=== PATIENT | female | born 1945 | race Hispanic/Latino ===

== ENCOUNTER 2024-10-24 23:32 | Inpatient (IN) | payer OTHER, SELFPAY ==
[2024-10-24 21:00] VITALS: BP 160/79
[2024-10-24 21:05] LABS: Glucose - Point of Care 408 mg/dl (70-99)
[2024-10-24 21:21] VITALS: BP 149/67; BMI 24.7
[2024-10-24 21:22] LABS: % Basophils 0.6 % (0-2); % Eosinophils 0.6 % (0-6); % Immature Granulocytes 0.8 % (0-0.5); % Lymphocytes 15.9 % (20.5-51.1); % Monocytes 8.3 % (1.7-9.3); % Neutrophils 73.8 % (42.2-75.2); Absolute Basophils 0.1 10^3/uL (0-0.2); Absolute Eosinophils 0.1 10^3/uL (0-0.7); Absolute Immature Granulocytes 0.1 10^3/uL (0-0.05); Absolute Lymphocytes 1.7 10^3/uL (1.2-3.4); Absolute Monocytes 0.9 10^3/uL (0.1-0.6); Hematocrit 43.5 % (37.0-47.0); Hemoglobin 14.9 g/dL (12.0-16.0); Mean Corp Hgb Conc. 34.3 g/dL (33.0-37.0); Mean Corpuscular Hgb 29.3 pg (27.0-31.0); Mean Corpuscular Volume 85.6 fL (81.0-99.0); Mean Platelet Volume 10.1 fL (7.4-10.4); Nucleated Red Blood Cells % 0 %; Platelet Count 343 10^3/uL (130-400); Red Blood Cell Count 5.08 10^6/uL (4.20-5.40); Red Cell Dist. Width 12.1 % (11.5-14.5); White Blood Cell Count 10.8 10^3/uL (4.8-10.8)
[2024-10-24 21:23] LABS: Venous Blood Gas B.E. -5.8 mmol/L (-4 to +4); Venous Blood Gas HCO3 20.7 mmol/L (22-27); Venous Blood Gas O2 Sat % 77.8 %; Venous Blood Gas pCO2 43 mmHg (35-48); Venous Blood Gas pH 7.29 (7.32-7.43); Venous Blood Gas pO2 44 mmHg (30-50)
[2024-10-24] MEDS: NSS 500 IV (21:55)
[2024-10-24 21:57] LABS: ALT (SGPT) 15 U/L (0-35); AST (SGOT) 16 U/L (14-36); Alkaline Phosphatase 97 U/L (38-126); Blood Urea Nitrogen 34 mg/dl (7-17); Calcium 9.5 mg/dl (8.4-10.2); Carbon Dioxide 17 mmol/L (22-30); Chloride 96 mmol/L (98-107); Estimated Creatinine Clearance 62 ml/min; Glucose 491 mg/dl (70-99); Potassium 5.5 mmol/L (3.5-5.1); Sodium 130 mmol/L (135-145); Total Bilirubin 0.9 mg/dl (0.2-1.3); eGFR > 60.00
[2024-10-24 22:00] VITALS: BP 141/84
[2024-10-24 22:02] LABS: B-Hydroxybutyrate 5.63 mmol/L (0.02-0.27)
--- NOTE | 2024-10-24 22:52 | ED.GENMED ---
History of Present Illness
General
Chief Complaint: Blood Sugar Problem
Source: patient and family
Time Seen by Provider: 10/24/24 21:14
History of Present Illness
History of Present Illness:
Note:
CHIEF COMPLAINT(S)
High blood sugar levels.
HISTORY OF PRESENT ILLNESS
The patient is a 79-year-old female with a past medical history of diabetes and hypertension, presenting with elevated blood sugar levels. Per the patients daughter, the patient recently arrived in the [facility] two months ago and has been
staying with her family. The high blood sugar levels were noticed a few days ago, with the highest readings in the low 500s mg/dL, and more recently reading at 380 mg/dL. The patient has been on metformin 1000 mg but was previously on a different
medication regimen while in [facility], which included a dosage of 850 mg. No primary care provider has been established yet in the [place]
The patient has not experienced chest pain, abdominal pain, nausea, or fever, but has reported occasional headaches. The patient denies any pain on urination. Of note, the patient had a minor stroke in the past, but has no history of heart attack or
major surgeries. Her daily activities and overall well-being have been affected by elevated blood sugar levels. The patients daughter increased the dosage of metformin on her own.
PHYSICAL EXAM
- The patient is awake, alert, and oriented.
- Skin is warm and dry.
- Cardiovascular: Heartbeat is regular with no murmur noted.
- Respiratory: Lungs are clear to auscultation.
- Abdomen: Soft and non-tender with no tenderness upon palpation.
- Peripheral: No leg swelling noted.
- Cranial Nerves: Grossly intact.
- Extremities: Skin is warm and well-perfused.
Nursing notes reviewed and vital signs reviewed.
CHRONIC MEDICAL CONDITIONS SIGNIFICANTLY AFFECTING CARE
- Diabetes
- Hypertension
- History of minor stroke
SOCIAL DETERMINANTS AFFECTING HEALTH
Recently relocated to the [place] and does not have an established primary care provider yet.
REVIEW OF SYSTEMS
- General: Elevated blood sugar levels
- Neurological: Occasional headaches
- Gastrointestinal: No abdominal pain or nausea
- Urinary: No pain on urination
PLAN
1. Administer gentle fluids to help lower blood sugar levels.
2. Check urine for signs of infection to rule out underlying causes for hyperglycemia.
3. Follow-up on blood work results to guide further management.
4. Consider referral to a primary care provider for ongoing diabetes management and stabilization.
DIFFERENTIAL DIAGNOSIS
The Differential Diagnosis includes, in no particular order and is not limited to:
1. Uncontrolled diabetes mellitus
2. Urinary tract infection
3. Medication adjustment
4. Stress-induced hyperglycemia
5. Dehydration-induced hyperglycemia
6. Infection-induced hyperglycemia
7. Endocrine disorders
8. Metabolic conditions
9. Unrecognized diet changes
10. Medication side effects
CARE-UPDATE
10/24/24 - 22:53
Reviewed lab results indicate metabolic acidosis with an anion gap (AG) of 17, accompanied by hyperglycemia and elevated beta-hydroxybutyrate levels. Initiating an insulin drip is planned to address these issues. Patient appears stable at present.
Phy Exam
Physical Exam
Physical Exam:
.
Course
Orders/Labs/Results
Orders:
Orders
10/24/24 21:10
B-Hydroxybutyrate Urgent
Complete Blood Count/With Diff Urgent
Comprehensive Metabolic Panel Urgent
Venous Blood Gas Urgent
%Oxygen/Room Air: 98
10/24/24 21:45
0.9% Sodium Chloride 500 ml [Nss] 500 ml IV BOLUS
10/24/24 22:52
Bedside Glucose- Treatment Q1H
IV Insert/Care/Rem.- Treatment PRN
10/24/24 22:57
Electrocardiogram (*1) Urgent
Reason for Study: Fatigue / Weakness
EKG- Treatment ONCE
10/24/24 22:59
Basic Metabolic Panel Q2H
Urinalysis Reflex To Culture Urgent
Date Specimen was Collected: 10/24/24
Time Specimen was Collected: 22:56
10/24/24 23:06
Reg Insulin 100 Units/100 ml [Novolin R Insulin Infusion] 100 units in 100 ml IV NOW
10/24/24 23:14
Admit/Transfer Patient As Directed
Co-Sign Provider:
Level of Care: Inpatient admission
Assign to:: ICU
Physician / Group: [email or web address]
Diagnosis: DKA, Hi AG Metabolic acidosis
Reason for Hospitalization: DKA, Hi AG Metabolic acidosis
Expected length of stay greater than two midnights?: Yes
ELOS- Estimated Length of Stay in days: 3
I certify the patient meets the requirements for IP care: Yes
10/24/24 23:15
Code Status As Directed
Resuscitation Status: Full Code
10/25/24 00:15
0.9% Sodium Chloride 1000 ml [Nss] 1,000 ml IV 250 mls/hr
Reg Insulin 100 Units/100 ml [Novolin R Insulin Infusion] 100 units in 100 ml IV PER PROTOCOL
Currently infusing. Continue current dose and titrate:: Yes
10/25/24 00:15
Diabetes Education Consult Routine
Reason for Consult: Insulin Instruction
Newly Diagnosed?: No
Diabetes Management by Nurse Practitioner Routine
Consulting Provider: Rosalina Tomlinson
Was provider already notified?: No
Reason for Consult: Insulin Management
Activity As Directed
Activity Level: With Assistance
Bedside Glucose Monitoring As Directed
Frequency: Q1H
Intake/ Output As Directed
Frequency: Per unit guidelines
Notify MD As Directed
Notify physician if: Nurse to contact provider when glucose reaches 250 to obtain orders for D5 0.45 NaCl
Vital Signs As Directed
Frequency: Per unit guidelines
Weight As Directed
Frequency: Daily
DX Deep Vein Thrombosis Video Routine
10/25/24 01:00
Basic Metabolic Panel Q2H
10/25/24 02:00
Potassium Q2
Comment: report result to provider till Potassium >/= 3.3 to 5.3 mEq/L
10/25/24 03:00
Basic Metabolic Panel Q2H
10/25/24 04:00
Basic Metabolic Panel Q4
10/25/24 Breakfast
1800 calorie (15 carb) Diabetic
At Your Request: Full Participation
Does patient need a safe tray?: No
Complete Blood Count/No Diff IN AM
Hgba1c [Glycohemoglobin (HgbA1c)] IN AM
Potassium Q2
Comment: report result to provider till Potassium >/= 3.3 to 5.3 mEq/L
10/25/24 08:00
Basic Metabolic Panel Q4
Lisinopril [Zestril] 20 mg PO DAILY
10/25/24 10:00
Potassium Q2
Comment: report result to provider till Potassium >/= 3.3 to 5.3 mEq/L
10/25/24 12:00
Basic Metabolic Panel Q4
10/25/24 14:00
Potassium Q2
Comment: report result to provider till Potassium >/= 3.3 to 5.3 mEq/L
10/25/24 16:00
Basic Metabolic Panel Q4
10/25/24 18:00
Enoxaparin Sodium [Lovenox] 40 mg SC QPM
10/25/24 20:00
Basic Metabolic Panel Q4
10/26/24 00:00
Basic Metabolic Panel Q4
Abnormal Lab Results
10/24/24 10/24/24 10/24/24
21:03 21:10 22:59
Abs Immat Gran (auto) 0.1 H 10^3/uL
(0-0.05)
Absolute Neuts (auto) 8.0 H 10^3/uL
(1.4-6.5)
Absolute Monos (auto) 0.9 H 10^3/uL
(0.1-0.6)
Immature Gran % 0.8 H %
(0-0.5)
Lymphocytes % 15.9 L %
(20.5-51.1)
VBG pH 7.29 L
(7.32-7.43)
VBG HCO3 20.7 L mmol/L
(22-27)
Sodium 130 L mmol/L 130 L mmol/L
(135-145) (135-145)
Potassium 5.5 H mmol/L
(3.5-5.1)
Chloride 96 L mmol/L
(98-107)
Carbon Dioxide 17 L mmol/L 17 L mmol/L
(22-30) (22-30)
BUN 34 H mg/dl 33 H mg/dl
(7-17) (7-17)
Creatinine 0.5 L mg/dL
(0.6-1.0)
Glucose 491 H* mg/dl 441 H mg/dl
(-99) (70-99)
Urine Ketones 3+ A
(Negative)
Urine Glucose 4+ A
(Negative)
B-Hydroxybutyrate 5.63 H mmol/L
(0.02-0.27)
POC Glucose 408 H mg/dl
(70-99)
10/24/24
23:12
Abs Immat Gran (auto)
Absolute Neuts (auto)
Absolute Monos (auto)
Immature Gran %
Lymphocytes %
VBG pH
VBG HCO3
Sodium
Potassium
Chloride
Carbon Dioxide
BUN
Creatinine
Glucose
Urine Ketones
Urine Glucose
B-Hydroxybutyrate
POC Glucose 366 H mg/dl
(70-99)
10/24/24 21:10
10/24/24 22:59
Vital Signs
Initial and Last Documented VS:
Initial Vital Signs
Temp Pulse Resp BP Pulse Ox
98.2 F 109 20 160/79 97
10/24/24 21:00 10/24/24 21:00 10/24/24 21:00 10/24/24 21:00 10/24/24 21:00
Last Documented Vital Signs
Temp Pulse Resp BP Pulse Ox
98.2 F 99 22 156/77 96
10/24/24 21:00 10/25/24 00:24 10/25/24 00:24 10/25/24 00:24 10/25/24 00:24
*Pulse Oximetry
Patient hypoxic: no (97%)
*Burner Hand Interpretation
Rate: normal
Interpretation: normal
Rhythm: sinus
*Critical Care Note
Total Time (30-74mins, 75-104mins- exclusive of procedures): 30 minutes
Patient Management
Discussion with other providers: Hospitalist
Escalation/DeEscalation of care consider admission/obs:
Note:
CARE-UPDATE
10/24/24 - 22:53
Reviewed lab results indicate metabolic acidosis with an anion gap (AG) of 17, accompanied by hyperglycemia and elevated beta-hydroxybutyrate levels. Initiating an insulin drip is planned to address these issues. Patient appears stable at present.
Disposition:
DIAGNOSIS
- Diabetes mellitus, currently uncontrolled, with diabetic ketoacidosis (ICD-10 E11.65).
SUMMARY OF ENCOUNTER
The patient is a 79-year-old female with a known history of diabetes, who presented with hyperglycemia. Upon evaluation, her blood glucose levels were severely elevated, and lab results showed metabolic acidosis with elevated beta-hydroxybutyrate
levels, suggestive of mild diabetic ketoacidosis (DKA). The patients daughter reported unstable blood sugar readings over the last few days, possibly stemming from changes in medication and relocation to the [facility] without a primary care
provider. The management in the emergency department included starting an insulin drip to address the metabolic derangement.
DISPOSITION
Admit
CONSIDERATION FOR ADMISSION
The patient was considered for admission due to metabolic acidosis and hyperglycemia, indicating a potential mild DKA requiring intravenous insulin therapy and further monitoring.
ASSESSMENT
The patient is experiencing uncontrolled diabetes mellitus likely exacerbated by changes in medication regimen and potential dietary adjustments after relocating. The presence of metabolic acidosis and elevated beta-hydroxybutyrate levels raises
concern for potential mild diabetic ketoacidosis.
PLAN
1. Initiate insulin drip to manage hyperglycemia and acidosis.
2. Continuous monitoring of blood glucose and metabolic parameters.
3. Educate the patient and family regarding diabetes management, medication adjustments, and the importance of establishing care with a primary care provider in the [facility] for ongoing management.
INDEPENDENT INTERPRETATION OF TESTS
My independent interpretation of the lab results indicates metabolic acidosis with an elevated anion gap and elevated beta-hydroxybutyrate levels, consistent with mild diabetic ketoacidosis.
MANAGEMENT OF THE PATIENTS CARE WAS DISCUSSED WITH
All treatment decisions and potential admission were discussed with the patients daughter at bedside, ensuring understanding and agreement with the proposed plan.
MEDICAL DECISION MAKING
Number and Complexity of Problems Addressed: The patients hyperglycemia is complicated by metabolic acidosis, suggesting mild diabetic ketoacidosis and requiring acute management. Complexity arises from medication changes and lack of established
primary care post-relocation.
Data: Labs interpreted include evidence of metabolic acidosis and elevated beta-hydroxybutyrate, leading to the decision to initiate insulin therapy.
Risk: Admission was considered due to the risk of progression of ketoacidosis and need for close monitoring. Social determinants including lack of established healthcare and recent relocation contributed to treatment planning and admission decision.
ED Attending Note
-
Portions of this chart may have been created with voice recognition software.� Occasional wrong word or��sound alike� substitutions may have occurred due to the inherent limitations of voice recognition software.
Discharge Plan
Departure
Patient Disposition: Admit
Date of Disposition: 10/24/24
Time of Disposition: 22:58
Admit to: IMU
Presentation/result/management discussed w/ accepting MD/DO: Hospitalist
Discharge Problem:
DKA (diabetic ketoacidosis)
Interventions
Interventions:
*Risk Screen - Suicide Last Done: 10/24/24 21:21
*General Assessment Last Done: 10/24/24 21:02
*Neglect/Abuse Screening Last Done: 10/24/24 21:21
*ED- Fall Risk Assessment Last Done: 10/24/24 21:21
*ED COVID-19 Vaccine History Last Done: 10/24/24 21:02
*Nursing Disposition Last Done: 10/25/24 00:15
ED- Neurological Assessment Last Done: 10/24/24 21:21
Discharge Date and Time
Discharge Date/Time: 10/25/24 00:15
[2024-10-24 23:00] VITALS: BP 124/61
[2024-10-24 23:08] LABS: Urine Albumin Negative (Neg - Trace); Urine Bilirubin Negative (Negative); Urine Character Clear (Clear); Urine Color Yellow; Urine Glucose 4+ (Negative); Urine Ketone 3+ (Negative); Urine Leukocyte Negative (Negative); Urine Nitrite Negative (Negative); Urine Occult Blood Negative (Negative); Urine Urobilinogen Negative (Neg - 1+)
--- NOTE | 2024-10-24 23:10 | W.PN.UPDATE ---
Update Note
Progress Note Update
This note serves as an addendum to the H&P by radio presenter GUS Arleen ALEJANDRO
HPI
79F recently arrived [place] from [facility] HX DM, HTN, BiB Daughter for hi blood sugar.
- highest readings in the low 500s mg/dL, and more recently reading at 380 mg/dL.
- The patient has been on metformin 1000 mg but was previously on a different medication regimen while in [facility], which included a dosage of 850 mg.
- No primary care provider has been established yet in the [place]
ROS:
- denied urinary Sx
- denied cough
- denied CP
- denied fever
Vital Signs
Temp Pulse Resp BP Pulse Ox
98.2 F 109 20 141/84 95
10/24/24 21:00 10/24/24 21:00 10/24/24 21:00 10/24/24 22:00 10/24/24 22:30
PE
Gen: awake , not toxic
HEENT: anicteric
Neck: supple
Lungs: CTA
Cor: RRR S1 s2
Abdomen: soft , NT, NG
CASTING SORTER: NFDND
MS: no edema
Psych:limited due to language forrest
Admission labs
10/24/24
21:10
WBC 10.8
Hgb 14.9
Plt Count 343
VBG pH 7.29 L
VBG pCO2 43
VBG pO2 44
Sodium 130 L
Potassium 5.5 H
Chloride 96 L
Carbon Dioxide 17 L
BUN 34 H
Creatinine 0.6
Glucose 491 H*
B-Hydroxybutyrate 5.63 H
NO Prior hospitalist admission:
ASSESSMENT & PLAN
Pending Rx reconciliation
Non Bengali speaker
DKA
HAG MA ( 17)
Hyperkalemia due to Metabolic acidosis
Uncontrol BG 491
- check UA
- DKA protocol
- IV NS
- DM CENTRIFUGAL EXTRACTOR OPERATOR consult
HTN
- c/w Lisinopril
DVT Px: LMWH
Code: Full code
ICU
[2024-10-24 23:13] LABS: Glucose - Point of Care 366 mg/dl (70-99)
--- NOTE | 2024-10-24 23:23 | HPS.HSE ---
Family Physician
-
Family Physician: NOT KNOW UNKNOWN - PT DOES
Chief Complaint
-
Elevated Blood Sugars
History of Present Illness
Patient is a 79 y/o female past medical history of hypertension and diabetes mellitus who presents with elevated blood glucose. Additional history obtained from patient's family at the bedside due to language barrier. Patient's sugars have been
running high for the past few weeks. Family increased her metformin from once a day to twice a day but sugars continued to run high. Family notes patient has been drinking a lot of fluid and urinating more frequently.
Medical History
Past Medical History
Past Medical History: Reports Other
Additional Past Medical History:
Diabetes Mellitus, Type II
Essential Hypertension
Past Surgical History: Reports Other
Additional Past Surgical History:
Cholecystectomy
Social History
Tobacco: Non-smoker
Alcohol: None
Family History
Family History: Not pertinent
Allergies / Home Medications
Allergies reflects when Allergies were last updated in [facility].
Home Medications with original date entered in [facility]
Allergy/Medication List:
Allergies
Allergy/AdvReac Type Severity Reaction Status Date / Time
No Known Allergies Allergy Verified 10/24/24 21:04
Home Medications
lisinopril 20 mg tablet 20 mg PO DAILY 10/24/24
metformin 1,000 mg tablet 1,000 mg PO BID 10/24/24
Review of Systems
-
Unable to obtain full review of systems at this time due to: Language Barrier
Physical Exam
Vital Signs
Vital Signs
Temp Pulse Resp BP Pulse Ox
98.2 F 109 20 124/61 95
10/24/24 21:00 10/24/24 21:00 10/24/24 21:00 10/24/24 23:00 10/24/24 23:15
Physical Exam
General: Comfortable and Conversant
HEENT: Anicteric and Moist mucous membranes
Respiratory: Clear and Non Labored Respirations
Cardiac: S1/S2, Regular Rhythm and Tachycardia
GI: Soft and Non Tender
Rectal: Deferred by Provider
Musculoskeletal: No Clubbing, No Cyanosis and No Edema
Skin: Warm and Dry
Neuro: Awake, Alert, Oriented and Nonfocal/grossly intact
Psych: Calm
Laboratory Results
-
10/24/24 21:10
Laboratory Results
Total Bilirubin 0.9 mg/dl (0.2-1.3) 10/24/24 21:10
AST 16 U/L (14-36) 10/24/24 21:10
ALT 15 U/L (0-35) 10/24/24 21:10
Alkaline Phosphatase 97 U/L (38-126) 10/24/24 21:10
Data Reviewed
-
Lab Data: Labs Reviewed by me
Impression/Plan
-
Diabetic Ketoacidosis
-Admit to ICU for intensive monitoring, frequent bedside glucose monitoring and frequent blood draws
-Continue insulin drip
-Continue IVFs
-Check HgbA1c
-Consult Manager Fire for education and insulin recommendation
Hyperkalemia, mild
-Continue IVFs
-Monitor potassium level closely with glucose correction
Pseudohyponatremia
-Corrected sodium 136
Essential Hypertension
-Continue lisinopril
DVT proph: Lovenox
Code Status: Full Code
[2024-10-24 23:31] LABS: Blood Urea Nitrogen 33 mg/dl (7-17); Calcium 8.9 mg/dl (8.4-10.2); Carbon Dioxide 17 mmol/L (22-30); Chloride 99 mmol/L (98-107); Estimated Creatinine Clearance 62 ml/min; Glucose 441 mg/dl (70-99); Potassium 5.1 mmol/L (3.5-5.1); Sodium 130 mmol/L (135-145); eGFR > 60.00
[2024-10-24] MEDS: NOVOLIN R INSULIN INFUSION 100 IV (23:41)
[2024-10-25] VITALS (16 sets, daily range): BP systolic 115–156; BP diastolic 55–102; PULSE 96; BMI 24.3
[2024-10-25] MEDS: NSS 1000 IV (00:31)
[2024-10-25 00:37] LABS: Glucose - Point of Care 367 mg/dl (70-99)
--- NOTE | 2024-10-25 01:24 | PTCARENOTE ---
Received patient AAOx3, following commands, denying pain. Daughter at bedside to help translate, patient is primarily cymro speaking. Assist x1 to the bathroom. NS 90s, BP stable, normothermic. Trace b/l LE edema. 95% on room air, lung sounds
clear throughout. Ambulates to bathroom to void. Skin intact. PIVs patent, WNL. Insulin and IVF ongoing per protocol. Call mckeon within reach, hourly rounding and patient safety checks ongoing.
[2024-10-25 01:48] LABS: Glucose - Point of Care 264 mg/dl (70-99)
[2024-10-25 02:38] LABS: Blood Urea Nitrogen 29 mg/dl (7-17); Calcium 8.5 mg/dl (8.4-10.2); Carbon Dioxide 20 mmol/L (22-30); Chloride 107 mmol/L (98-107); Estimated Creatinine Clearance 62 ml/min; Glucose 220 mg/dl (70-99); Sodium 135 mmol/L (135-145); eGFR > 60.00
[2024-10-25 02:47] LABS: Glucose - Point of Care 177 mg/dl (70-99)
[2024-10-25] MEDS: D5/0.45%NSS with KCL 20 MEQ 1000 IV ×2 (02:54→08:38)
[2024-10-25 03:38] LABS: Glucose - Point of Care 198 mg/dl (70-99)
--- NOTE | 2024-10-25 04:35 | PTCARENOTE ---
Patient assessment unchanged from previous, call mckeon within reach.
[2024-10-25 04:43] LABS: Glucose - Point of Care 212 mg/dl (70-99)
[2024-10-25 06:01] LABS: Venous Blood Gas B.E. 0.1 mmol/L (-4 to +4); Venous Blood Gas O2 Sat % 99.6 %; Venous Blood Gas pCO2 46 mmHg (35-48); Venous Blood Gas pH 7.36 (7.32-7.43); Venous Blood Gas pO2 121 mmHg (30-50)
[2024-10-25 06:01] LABS: Glucose - Point of Care 222 mg/dl (70-99)
[2024-10-25 06:16] LABS: Hematocrit 38.8 % (37.0-47.0); Hemoglobin 13.6 g/dL (12.0-16.0); Mean Corp Hgb Conc. 35.1 g/dL (33.0-37.0); Mean Corpuscular Volume 85.5 fL (81.0-99.0); Mean Platelet Volume 10.2 fL (7.4-10.4); Platelet Count 279 10^3/uL (130-400); Red Blood Cell Count 4.54 10^6/uL (4.20-5.40); Red Cell Dist. Width 11.9 % (11.5-14.5); White Blood Cell Count 11.3 10^3/uL (4.8-10.8)
[2024-10-25 06:25] LABS: INR 1.06; PT 14.1 Sec (11.4-14.6)
[2024-10-25 06:26] LABS: APTT 26.1 Sec (23.4-35.0)
[2024-10-25 06:34] LABS: Blood Urea Nitrogen 24 mg/dl (7-17); Calcium 8.6 mg/dl (8.4-10.2); Carbon Dioxide 23 mmol/L (22-30); Chloride 104 mmol/L (98-107); Estimated Creatinine Clearance 62 ml/min; Glucose 238 mg/dl (70-99); Magnesium 1.8 mg/dl (1.6-2.3); Phosphorus 2.1 mg/dl (2.5-4.5); Sodium 134 mmol/L (135-145); eGFR > 60.00
[2024-10-25 06:41] LABS: Glucose - Point of Care 240 mg/dl (70-99)
[2024-10-25 07:37] LABS: Glucose - Point of Care 250 mg/dl (70-99)
[2024-10-25 07:57] LABS: Glucose - Point of Care 216 mg/dl (70-99)
--- NOTE | 2024-10-25 08:25 | CON.INTV ---
Consultation
Consultation Request
Date/Time Consultation Requested: 10/25/202414
Date/Time Consultation Performed: 10/25/2024821
Requesting Provider: Dior Thornton PA-C
Performing Provider: Dr. Whiting
Reason for Consultation: DKA
Medical History
-
Chief Complaint: High blood sugars
History of Present Illness:
79-year-old female with a past medical history of DM type II and hypertension who presents with high blood sugars. Patient's sugars have been running high for the last few weeks. Family increase her metformin from once a day to twice but the
sugars continue to remain increased. Patient is also been drinking a lot of fluid and urinating more recently. In the ER patient was afebrile, pulse rate 109, respiratory rate 20, BP 160/79 and saturating 97% on room air. Initial labs pertinent
for acidosis with pH 7.29, pCO2 43, (VBG), blood glucose 441, creatinine 0.5, serum bicarbonate level 17, anion gap 14, +3 urine ketones and +4 urine glucose, with beta-hydroxybutyrate 5.63. Patient was given 500 cc of NS 0.9%, and admitted to the
ICU where she was started on insulin drip. Community Service Aide services consulted for additional management/recommendations.
Patient was seen and evaluated this morning. Currently on insulin drip at 3 units/hr. DKA now resolved. Also on D5-1/2NS + KCl (20 MeQ) @ 150 cc/hr. Current heart rate 105, BP 121/77, breathing comfortably on room air. No acute events reported
from overnight.
PMHx: DM type II, hypertension
PSHx: Cholecystectomy
Past Medical History
Past Medical History: Other (Above as per HPI)
Past Surgical History: Other (Above as per HPI)
Social History
Tobacco: Non-smoker
Alcohol: None
Drug: None
Employment: Not Employed
Family History
Family History: Reviewed & Not Pertinent
Allergies / Home Medications
Allergies
Allergy/AdvReac Type Severity Reaction Status Date / Time
No Known Allergies Allergy Verified 10/24/24 21:04
Home Medications
�Medication �Instructions �Recorded �Confirmed �Last Taken �Type
lisinopril 20 mg tablet 20 mg PO DAILY 10/24/24 10/24/24 Unknown History
metformin 1,000 mg tablet 1,000 mg PO BID 10/24/24 10/24/24 Unknown History
Review of Systems
-
Unable to Obtain full review of systems at this time due to: Language Barrier
Vitals / Labs / Diagnostic Testing
Vital Signs
Temp Pulse Resp BP Pulse Ox
98.8 F 86 30 132/55 95
10/25/24 08:04 10/25/24 08:38 10/25/24 06:15 10/25/24 08:38 10/25/24 06:15
Lab Data
10/25/24 05:51
Laboratory Results
10/25/24
05:51
PT 14.1
INR 1.06
APTT 26.1
Diagnostic Testing:
Physical Exam
-
HEENT: Normocephalic and Anicteric
Cardiovascular: S1/S2 and Peripheral Edema (negative)
Respiratory: Wheeze (negative), Rales (negative), Rhonchi (negative) and Non-Labored Respirations
GI: Soft, Non Distended, Non Tender and Normal Bowel Sounds
Neurology: Awake, Alert and Tremors (negative)
Skin: Warm and Dry
General: Respiratory Distress (negative), Comfortable, Fever (negative) and Chills (negative)
Assessment
-
Assessment: 79-year-old female with a past medical history of DM type II and hypertension who presents with high blood sugars. Patient's sugars have been running high for the last few weeks. Family increase her metformin from once a day to twice
but the sugars continue to remain increased. Patient is also been drinking a lot of fluid and urinating more recently. In the ER patient was afebrile, pulse rate 109, respiratory rate 20, BP 160/79 and saturating 97% on room air. Initial labs
pertinent for acidosis with pH 7.29, pCO2 43, (VBG), blood glucose 441, creatinine 0.5, serum bicarbonate level 17, anion gap 14, +3 urine ketones and +4 urine glucose, with beta-hydroxybutyrate 5.63. Patient was given 500 cc of NS 0.9%, and
admitted to the ICU where she was started on insulin drip. Community Service Aide services consulted for additional management/recommendations.
Chronic conditions SHAKE SPLITTER: DM type II, hypertension
Impression:
#DM type II (uncontrolled: HbA1c: 10.3 on 10/25/2024) complicated by DKA
#Pseudohyponatremia due to hyperglycemia
#Hypophosphatemia
#Hypertension
#Left lower lobe atelectasis
Plan:
- Patient currently being weaned off the insulin infusion
- Diabetic MOONER consulted who will assist in weaning her off the insulin drip and then also getting her onto a regimen that she will likely be discharged home on (likely 70/30 mix as more affordable)
- Continue with q1hr fingersticks while on insulin gtt in addition to dextrose and KCl-containing IVF; once insulin gtt is turned off, then stop the IVF as well and start AC + HS fingersticks
- Once she starts to eat, assure she is on a diabetic diet
- Serial BMP while on insulin gtt as well; once off the insulin gtt, then recheck labs tomorrow AM
- Avoid hypoglycemia and avoid hypokalemia while on insulin gtt; goal K: 4 - 5.1, also keep Mg >1.8, and keep BG>100 and <180mg/dL
- Maintain SpO2 >90-94%
- Aspiration precautions
- Maintain MAP>65
- Trend H/H and transfuse if needed to keep Hb>7g/dL; keep plt>20k, unless there is concern for bleeding then keep plt>50k
- prn nebulized bronchodilators - not currently bronchospastic
- Incentive spirometer encouraged 10x per hour for at least 4 hrs a day - using the IS will also help her left lower lobe atelectasis
- DVT ppx: LMWH
Patient is being weaned off the insulin drip, and is stable for downgrade out of ICU to [facility]. No additional recommendations at this time. Community Service Aide/Pulmonary service will now sign off. Thank you for allowing us to be involved in the care of
this patient. Please reconsult if there are any additional questions/concerns, or if patient's respiratory status deteriorates.
Total time spent today was 58 minutes for this encounter. Time includes reviewing laboratory test/imaging results, reviewing pertinent medical records, obtaining and reviewing medical history, performing an appropriate exam, ordering medications,
tests and procedures. Time also includes documentation of this encounter, coordinating patient care and communicating with other healthcare professionals. Total time does not include separately billed tests performed on this date of service.
--- NOTE | 2024-10-25 08:30 | PTCARENOTE ---
Received pt @ change of shift. Pt. drowsy, awakens to verbal stim; Tamazight speaking, translation line utilized. SR on monitor. SpO2 95% on RA. Afebrile. Cont b/b. Assisted into BR x 1; pt. attempting to use furniture for stabilization; RW
implemented. Assisted w AM hygiene in BR then into chair. Tolerating chair position. Insulin gtt and IVF infusing per orders- see MAR/flow sheet. Q1H AccuCheck maintained. Pt. instructed on how to use call mckeon and placed w in reach;
demonstrated understanding.
[2024-10-25] MEDS: ZESTRIL 20 MG PO (08:38)
[2024-10-25 08:41] LABS: Glucose - Point of Care 233 mg/dl (70-99)
[2024-10-25 09:38] LABS: Glucose - Point of Care 214 mg/dl (70-99)
--- NOTE | 2024-10-25 09:42 | PN.DE.MGMTRT ---
Insulin Management
- -
10/25/2024: Diabetes Management Consult
79 year old female who presented to the ED with c/o elevated blood sugar. PMH includes: HTN, T2DM.
Pt is Nepali speaking, history obtained from patient's family at the bedside due to language barrier, Dtr states she is able to assist with translation. According to the family at bedside, Patient's sugars have been running high with the highest
readings in the low 500s mg/dL, and more recently reading at 380 mg/dL for the past few weeks. The patient had been on metformin 500 mg BID (was started by pt's son-in-law) but sugars continued to run high so the family decided to increase her dose
to 1000mg BID. Please note that pt was being treated by her family members without direction of a physician and she dose not have a PCP due to recent migration to the from [facility]. Family notes patient has been drinking a lot of fluid and
urinating more frequently. Glucose on admission was 491, with a GAP of 17, pt was initiated on DKA protocol. A1C 10.3%, Cr 0.4, eGFR >60
Pt awake, alert, sitting up in chair, eating breakfast, offers no complaints, able to discuss diabetes care plan, family at bedside, very supportive.
Pt has required 2-6 units of insulin /hr with a glucose range of 177 to 367. GAP has closed and glucose has improved.
Will plan to transition to SQ insulin. Give Lantus 15 units and turn drip off 1 hr after giving Lantus. Start AC NovoLog 5 units and moderate corrective with meals.
According to the Dtr, Pt does not have insurance, in the process of applying for medical assistance
Will start 70/30 NovoLog BID 25 units, 1st dose in AM. Resume Metformin 1000 mg BID.
Diabetes RN educator to see pot for insulin instructions. Dtr states that they have a working glucose monitor with enough supplies.
Diabetes History
- -
Type of Diabetes: 2 requiring insulin
Pre-Admission Diabetes Regimen
10/24/24 10/24/24 10/25/24
21:10 22:59 01:00
Creatinine 0.6 0.5 L Cancelled
10/25/24 10/25/24 10/25/24
02:04 03:00 04:00
Creatinine 0.4 L Cancelled Cancelled
10/25/24 10/25/24 10/25/24
05:51 08:00 12:00
Creatinine 0.4 L Cancelled Cancelled
10/25/24 10/25/24
16:00 20:00
Creatinine Cancelled Cancelled
Insulin Pump Settings
IP Diabetes Regimen
10/24/24 10/24/24 10/24/24
21:03 21:10 22:59
Glucose 491 H* 441 H
POC Glucose 408 H
10/24/24 10/25/24 10/25/24
23:12 00:25 01:00
Glucose Cancelled
POC Glucose 366 H 367 H
10/25/24 10/25/24 10/25/24
01:35 02:04 02:36
Glucose 220 H
POC Glucose 264 H 177 H
10/25/24 10/25/24 10/25/24
03:00 03:27 04:00
Glucose Cancelled Cancelled
POC Glucose 198 H
10/25/24 10/25/24 10/25/24
04:31 05:50 05:51
Glucose 238 H
POC Glucose 212 H 222 H
10/25/24 10/25/24 10/25/24
06:29 07:26 07:46
Glucose
POC Glucose 240 H 250 H 216 H
10/25/24 10/25/24 10/25/24
08:00 08:30 09:26
Glucose Cancelled
POC Glucose 233 H 214 H
10/25/24 10/25/24 10/25/24
12:00 16:00 20:00
Glucose Cancelled Cancelled Cancelled
POC Glucose
Patient Education
[2024-10-25 10:07] LABS: Glycohemoglobin (HgbA1c) 10.3 % (4.0-5.6)
[2024-10-25] MEDS: LANTUS 0.15 UNITS SC (10:22)
[2024-10-25 10:39] LABS: Glucose - Point of Care 203 mg/dl (70-99)
--- NOTE | 2024-10-25 11:55 | W.PN.HOSP.TC ---
Today's Communication/Plan
-
See plan
Assessment / Plan
Assessment / Plan
Impression:
Admitted with persistent hyperglycemia
DKA, mild
Hyperkalemia
Diabetes type 2.
Essential hypertension
Plan
Type 2 diabetes.
Persistent hyperglycemia.
Mild DKA now resolved
Hemoglobin A1c 10.3
No particular complaints or symptoms triggering decompensation/DKA.
Anion gap normalized
Transition to carbohydrate controlled diet
Initiated on insulin Lantus/NovoLog
Reinstated on metformin
Continue basal bolus protocol and adjust insulin dose over the next 24 hours
Monitor out of ICU
Hyperkalemia, mild in the settings of hyperglycemia and KATHRYN inhibitor.
Improved with IV fluids and blood glucose contro
Monitor with resumption of lisinopril
Essential hypertension
Continue lisinopril and monitor BP trend.
Anticipated Discharge: Within 24 hours
Subjective/Interval History
-
Date of Service: October 25, 2024
Objective Data
-
Labs:
Laboratory Results
10/25/24 10/25/24 10/25/24
01:00 02:00 02:04
WBC
Hgb
Hct
Plt Count
PT
INR
APTT
Sodium Cancelled 135
Potassium Cancelled Cancelled 4.0
Chloride Cancelled 107
Carbon Dioxide Cancelled 20 L
BUN Cancelled 29 H
Creatinine Cancelled 0.4 L
Glucose Cancelled 220 H
Calcium Cancelled 8.5
10/25/24 10/25/24 10/25/24
03:00 04:00 05:51
WBC 11.3 H
Hgb 13.6
Hct 38.8
Plt Count 279
PT 14.1
INR 1.06
APTT 26.1
Sodium Cancelled Cancelled 134 L
Potassium Cancelled Cancelled 4.0
Chloride Cancelled Cancelled 104
Carbon Dioxide Cancelled Cancelled 23
BUN Cancelled Cancelled 24 H
Creatinine Cancelled Cancelled 0.4 L
Glucose Cancelled Cancelled 238 H
Calcium Cancelled Cancelled 8.6
10/25/24 10/25/24 10/25/24
06:00 08:00 10:00
WBC
Hgb
Hct
Plt Count
PT
INR
APTT
Sodium Cancelled Cancelled
Potassium Cancelled Cancelled Cancelled
Chloride Cancelled
Carbon Dioxide Cancelled
BUN Cancelled
Creatinine Cancelled
Glucose Cancelled
Calcium Cancelled
10/25/24 10/25/24 10/25/24
10:00 12:00 14:00
WBC
Hgb
Hct
Plt Count
PT
INR
APTT
Sodium Cancelled Cancelled
Potassium Cancelled Cancelled Cancelled
Chloride Cancelled Cancelled
Carbon Dioxide Cancelled Cancelled
BUN Cancelled Cancelled
Creatinine Cancelled Cancelled
Glucose Cancelled Cancelled
Calcium Cancelled Cancelled
10/25/24 10/25/24 10/25/24
14:00 16:00 18:00
WBC
Hgb
Hct
Plt Count
PT
INR
APTT
Sodium Cancelled Cancelled
Potassium Cancelled Cancelled Cancelled
Chloride Cancelled Cancelled Cancelled
Carbon Dioxide Cancelled Cancelled Cancelled
BUN Cancelled Cancelled Cancelled
Creatinine Cancelled Cancelled Cancelled
Glucose Cancelled Cancelled Cancelled
Calcium Cancelled Cancelled Cancelled
10/25/24 10/25/24
20:00 22:00
WBC
Hgb
Hct
Plt Count
PT
INR
APTT
Sodium Cancelled Cancelled
Potassium Cancelled Cancelled
Chloride Cancelled Cancelled
Carbon Dioxide Cancelled Cancelled
BUN Cancelled Cancelled
Creatinine Cancelled Cancelled
Glucose Cancelled Cancelled
Calcium Cancelled Cancelled
Vital Signs:
Vital Signs
Temp Pulse Resp BP Pulse Ox
97.9 F 95 22 125/69 95
10/25/24 11:32 10/25/24 09:06 10/25/24 09:06 10/25/24 09:06 10/25/24 09:18
I&O
10/24/24 10/25/24 10/26/24
06:59 06:59 06:59
Intake Total 1119 / 1272 612 / 612
Output Total 200 / 200 200 / 200
Balance 919 / 1072 412 / 412
Physical Exam
-
General: Well Developed and No Apparent Distress
HEENT: Normocephalic, Atraumatic and Moist Mucous Membranes
Respiratory: Clear to Auscultation
Cardiac: Regular Rhythm and S1/S2; Negative Murmur, Rub or Gallop
GI: Soft, Nontender, Nondistended and Normal Bowel Sounds; Negative Organomegaly
Rectal: Deferred by Provider
Musculoskeletal: No Clubbing, No Cyanosis and No Edema
Skin: Negative Rash
Neuro: Nonfocal/Grossly Intact
[2024-10-25] MEDS: NOVOLOG FLEXPEN 5 UNITS SC ×2 (12:07→18:47)
[2024-10-25] MEDS: NOVOLOG FLEXPEN-MODERATE RESISTANCE 3 UNITS SC ×2 (12:07→18:48)
--- NOTE | 2024-10-25 12:19 | CM ---
Initial assessment completed with daughter. Patient lives with daughter, S-I-L and 2 granddaughters in a split level home with 3 steps to enter, B/B on upper level and 1/2 bath on lower level. 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
Does not drive. No DME. No in-home services. No service. No HC-POA No PCP. Pharmacy is [facility] in [place]. Discharge Plan of Care: Home with no needs. [facility] supplied Medicaid application to daughter.
--- NOTE | 2024-10-25 12:23 | PTCARENOTE ---
Case reviewed by Diabetic CLERK TYPISTMarla and further orders received to transition off insulin gtt to SC insulin. Admin SC Lantus- see JUL. Insulin gtt off s/p 2H Lantus admin- see flow sheet. Admin standing/sliding Novolog for meals- see JUL.
Pt. and family updated on plan of care. Remains in chair, tolerating. Also tolerating lunch. Call mckeon remains w in reach.
[2024-10-25] MEDS: NEUTRA-PHOS POWDER PACKET 500 MG PO ×2 (12:43→16:53)
[2024-10-25] MEDS: MAG-TAB SR 84 MG PO (12:43)
--- NOTE | 2024-10-25 13:00 | PTCARENOTE ---
Report given to 4W RN and pt. transported via wheelchair w RN up to rm [phone] w family and belongings. No further needs from this RN.
[2024-10-25 13:07] LABS: Glucose - Point of Care 253 mg/dl (70-99)
--- NOTE | 2024-10-25 14:42 | PTCARENOTE ---
10/25/2024 DIABETES EDUCATION CONSULT
I met with Daniel and daughter to review diabetes management.
Patient spends majority of time in [place], lives with daughter and family and does travel back to [facility]. Patient unable to understand Swedish, daughter was able to translate.
Daughter states her mother was on an oral medication and recently ran out for 2-3 days, a friend gave them Metformin and they started to take this. She states their medication prior was not Metformin. I explained that medications work
differently and do no interchange medications without MD order.
I explained mechanism of action of Metformin and insulin.
I educated on physiology of T2D, organ damage, managing with medications, monitoring BG, nutrition, activity, sleep and managing stress. I reinforced signs of hyperglycemia, hypoglycemia and hypoglycemia protocol; BS parameters and recommended HbA1c
goals, glucometer and CGM instructions, glucose tracker, medic alert bracelet and outpatient DSME program. Written material provided.
Patient has a self purchased glucose meter and testing supplies.
I educated and demonstrated on insulin injection technique, timing, and storage. Discussed long and short acting insulin; 70/30 onset/peak/duration, and encouraged her to administer his own injections with RN supervision while admitted. Discussed
normal target glucose ranges and a monitoring schedule 15 -30 min prior to administering 70/30 insulin.
Encouraged patient to follow up with a PCP for post d/c appointment and to monitor medication and blood glucose levels. Provided list of endocrinologists if desired. She is not insured presently, is in process of applying for Medicaid. Provided
verbal information on [facility] clinic. Patient and daughter verbalized understanding.
[2024-10-25 17:02] LABS: Glucose - Point of Care 201 mg/dl (70-99)
[2024-10-25] MEDS: GLUCOPHAGE 1000 MG PO (18:46)
[2024-10-25] MEDS: LOVENOX 40 MG SC (18:50)
[2024-10-25 21:04] LABS: Glucose - Point of Care 199 mg/dl (70-99)
[2024-10-26 06:00] VITALS: BMI 24.2
[2024-10-26 07:00] VITALS: BP 113/83
--- NOTE | 2024-10-26 07:27 | PN.DE.MGMTRT ---
Insulin Management
- -
10/26/2024: Diabetes Management Consult Follow up
Patient admitted with c/o elevated blood sugar. PMH includes: HTN, T2DM, CVA.
Pt is Telugu speaking, history obtained from patient's family at the bedside due to language barrier, Dtr states she is able to assist with translation. Since arrival to [place] patients glucose has been elevated, family started metformin 500 BID and
then increased to 1000 BID when glucose remained elevated. Please note that pt was being treated by her family members without direction of a physician, she dose not have a PCP due to recent migration to the from [facility]. Family notes patient
has been drinking a lot of fluid and urinating more frequently. Glucose on admission was 491, with a GAP of 17, pt was initiated on DKA protocol. A1C 10.3%, Cr 0.4, eGFR >60
Pt awake, alert, sitting up in chair, eating breakfast, offers no complaints, no family at bedside. I opened a session with the ipad grape grower, #[id number]. Patient able to answer questions, after approximately 3 minutes patient told grape grower that
she did not want to continue, her daughter would handle everything. Session stopped.
Transitioned from DKA protocol after GAP closed 10/25 to lantus 15 units with novolog 5 units AC. Glucose range 199 to 253. Pt does not have insurance, in the process of applying for medical assistance. To start 70/30 25 units BID this AM, and
resume Metformin 1000 mg BID. Family has been instructed on use of insulin pen. Daughter is a teacher and is not here, nurse states she will reinforce steps for insulin injections when daughter arrives. Patient to test glucose before each meal and
HS and report to primary doctor (which they need to obtain).
RX for prefilled 70/30 NOVOLIN pens and pen needles in ambulatory orders. Patient for discharge later today.
Diabetes RN educator to see pt for insulin instructions. Dtr states that they have a working glucose monitor with enough supplies.
Diabetes History
- -
Type of Diabetes: 2 requiring insulin
Pre-Admission Diabetes Regimen
10/25/24 10/25/24 10/25/24
10:00 14:00 18:00
Creatinine Cancelled Cancelled Cancelled
10/25/24
22:00
Creatinine Cancelled
Lab Results
Hemoglobin A1c 10.3 % (4.0-5.6) H 10/25/24 05:51
Insulin Pump Settings
IP Diabetes Regimen
10/25/24 10/25/24 10/25/24
07:46 08:30
Glucose
POC Glucose 250 H 216 H 233 H
10/25/24 10/25/24 10/25/24
10:00 10:28
Glucose Cancelled
POC Glucose 214 H 203 H
10/25/24 10/25/24 10/25/24
13:05 14:00 16:59
Glucose Cancelled
POC Glucose 253 H 201 H
10/25/24 10/25/24 10/25/24
18:00 21:03 22:00
Glucose Cancelled Cancelled
POC Glucose 199 H
Meal type: Lunch
Amount consumed: 75%
Patient Education
[2024-10-26 07:41] LABS: Glucose - Point of Care 290 mg/dl (70-99)
[2024-10-26] MEDS: GLUCOPHAGE 1000 MG PO (08:56)
[2024-10-26] MEDS: NOVOLOG FLEXPEN-MODERATE RESISTANCE 5 UNITS SC (08:57)
[2024-10-26] MEDS: NOVOLOG MIX 70/30 FLEXPEN 25 UNITS SC (09:19)
[2024-10-26 11:19] LABS: Glucose - Point of Care 226 mg/dl (70-99)
[2024-10-26 12:02] VITALS: BP 116/77; PULSE 112
--- NOTE | 2024-10-26 12:13 | W.DS.TRANS ---
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
-
Discharge Instructions:
Discharge Diagnosis/Procedures DKA
Diet Diabetic, Carb Controlled
Instructions:
Stand-Alone Forms:
Changes to Home Medications: Yes
Discharge Medications:
DC Medications w/original date entered in [employer]
lisinopril 20 mg tablet 20 mg PO DAILY Blood Pressure 10/24/24
metformin 1,000 mg tablet 1,000 mg PO BID Diabetes 10/24/24
insulin NPH-regular 70-30 U-100 insulin 100 unit/mL subcutaneous pen (Novolin 70-30 FlexPen U-100 Insulin) 25 unit (0.25 mL) SC BID@0800,1700 #5 ea 10/26/24
pen needle, diabetic 32 gauge x ' (Tova 2nd Gen Pen Needle) #100 ea 10/26/24
Home Medication Changes
Insulin initiated
Pending Results: No
[2024-10-26] MEDS: NOVOLOG FLEXPEN-MODERATE RESISTANCE 3 UNITS SC (12:15)
[2024-10-26] MEDS: ZESTRIL PO (12:18)
[2024-10-26 12:27] VITALS: BP 122/78
--- NOTE | 2024-10-26 12:48 | CM ---
Chart reviewed and patient is new diabetic, no insurance[facility] and patient may qualify for medicaid as patient is a permanent
resident and has been in the [place] for over 5 years, [facility] to submit claim, disease case manager reached out to Lon and cost of Novolin is $42.88 per month and cost of a box of needles for patient(100 needles) is $75, son-in-law is aware and agreeable to
paying for medication.
Plan; Home today.
[2024-10-26 15:00] VITALS: BP 121/85
== END 2024-10-26 16:44 | disposition home or self-care (01) | DRG 638 ==
LOC: 4 WEST ACU 23:32
PROVIDERS: Emergency Medicine; Nurse Practitioner Family; ADMITTING PHYSICIAN Internal Medicine; ATTENDING PHYSICIAN Internal Medicine; EMERGENCY PHYSICIAN Emergency Medicine; OTHER PHYSICIAN Internal Medicine Critical Care Medicine
DX: E11.10 Type 2 diabetes mellitus with ketoacidosis without coma (principal); J98.11 Atelectasis; I10 Essential (primary) hypertension; E87.5 Hyperkalemia; Z60.3 Acculturation difficulty; E83.39 Other disorders of phosphorus metabolism; Z79.899 Other long term (current) drug therapy; Z79.84 Long term (current) use of oral hypoglycemic drugs; Z79.4 Long term (current) use of insulin; Z86.73 Personal history of transient ischemic attack (TIA), and cerebral infarction without residual deficits
CPT/HCPCS: 71045; 80048; 80053; 81003; 82010; 82805; 82962; 83036; 83735; 84100; 85025; 85027; 85610; 85730; 93005; 96360; 97116; 97163; 97167; 99291